=== PATIENT | female | born 1995 ===

== ENCOUNTER 2017-06-10 12:12 | Emergency (ER) | payer MEDICAID ==
[2017-06-10 12:17] VITALS: BMI 23.9
[2017-06-10 12:20] VITALS: RESP 18
[2017-06-10 13:28] LABS: HCG,QUALITATIVE URINE NEGATIVE (NEGATIVE)
[2017-06-10 13:36] LABS: SQUAMOUS EPITHIAL 4 /hpf (0-5); URINE BACTERIA OCC (<OCC); URINE BILIRUBIN NEGATIVE (NEGATIVE); URINE BLOOD 3+ (NEGATIVE); URINE CLARITY Turbid (Clear); URINE COLOR RED (YELLOW); URINE GLUCOSE (UA) NORMAL (Normal); URINE LEUKOCYTE ESTERASE NEG Leu/uL (Negative); URINE PROTEIN 2+ mg/dL (NEGATIVE); URINE UROBILINOGEN NORMAL mg/dL (0.2-1.0)
[2017-06-10 15:02] LABS: BASO % 0.5 % (0.0-2.0); EOS # 0.1 K/uL (0.0-0.7); EOS % 1.4 % (0.0-4.0); HEMOGLOBIN 12.4 g/dL (11.0-16.0); LYMPH # 1.7 K/uL (1.0-4.3); LYMPH % 27.5 % (20.0-40.0); MEAN CELL VOLUME 80.1 fL (81.0-99.0); MEAN CORPUSCULAR HEMOGLOBIN 26.3 pg (27.0-31.0); MEAN CORPUSCULAR HGB CONC 32.8 g/dL (33.0-37.0); MEAN PLATELET VOLUME 9.1 fL (7.2-11.7); MONO # 0.5 K/uL (0.0-0.8); MONO % 7.6 % (0.0-10.0); NEUT # 3.8 K/uL (1.8-7.0); RBC 4.74 Mil/uL (3.80-5.20); RED CELL DISTRIBUTION WIDTH 18.1 % (11.5-14.5); WHITE BLOOD COUNT 6.1 K/uL (4.8-10.8)
[2017-06-10 15:28] LABS: ALB/GLOB RATIO 1.3 (1.0-2.1); ALBUMIN 4.6 g/dL (3.5-5.0); ALT/SGPT 18 U/L (9-52); AST/SGOT 29 U/L (14-36); BLOOD UREA NITROGEN 8 mg/dL (7-17); CALCIUM 9.6 mg/dl (8.6-10.4); GFR AFRICAN-AMERICAN > 60; GFR NON-AFRICAN AMERICAN > 60
--- NOTE | 2017-06-10 15:44 | US ---
HISTORY: bleeding x 3 mo s/p D C COMPARISON: None available. TECHNIQUE: Transabdominal and transvaginal FINDINGS: UTERUS: Measures 9.7 x 3.5 x 6.1 cm. Normal in size and appearance. No fibroid or other mass lesion seen. ENDOMETRIUM: Measures 8 mm in diameter. Minimal complex fluid within the endometrial cavity, with intermediate level echoes. CERVIX: No cervical abnormality identified. RIGHT OVARY: Measures 3.3 x 1.7 x 2.2 cm. No solid mass. Normal flow. LEFT OVARY: Measures 2.6 x 2.0 x 3.2 cm. No solid mass. Normal flow. Left para ovarian simple cyst, 3.7 x 3.3 x 3.6 cm. FREE FLUID: Small amount of fluid in cul-de-sac. OTHER FINDINGS: None. IMPRESSION: Minimal mildly complex fluid within the endometrial cavity, possibly old blood. 3.7 cm simple left paraovarian cyst. Small amount of fluid in cul-de-sac.
--- NOTE | 2017-06-10 15:46 | C.PDOC ---
History Of Present Illness 21yo female presents to ED with complaints of vaginal bleeding for the past 4 months. Patient states 4 months ago (cannot recall specific date or month ), she had an elective at 24 weeks at [facility]. Since the procedure she has had bleeding everyday, varying in intensity. Patient states for the past 3 days, the bleeding has increased. Today she has used 3 pads. Patient was evaluated multiple times at [facility] and last week at [facility] with questionable retained products. She denies any fever, dizziness, chest pain, sob, abdominal pain, nausea, vomiting or vaginal discharge. Time Seen by Provider: 06/10/17 13:47 Chief Complaint (Nursing): Female Genitourinary History Per: Patient History/Exam Limitations: no limitations Onset/Duration Of Symptoms: Persistent Current Symptoms Are (Timing): Still Present Abnormal Vaginal Bleeding: Yes Past Medical History Reviewed: Historical Data, Nursing Documentation, Vital Signs Vital Signs: Last Vital Signs Temp 98.7 F 06/10/17 18:24 Pulse 77 06/10/17 18:24 Resp 18 06/10/17 18:24 BP 123/78 06/10/17 18:24 Pulse Ox 96 06/10/17 18:24 - Medical History PMH: No Chronic Diseases Surgical History: Tonsillectomy (2010) Family History: States: No Known Family Hx - Social History Hx Alcohol Use: Yes Hx Substance Use: No Review Of Systems Except As Marked, All Systems Reviewed And Found Negative. Constitutional: Negative for: Fever, Chills Gastrointestinal: Negative for: Nausea, Vomiting, Abdominal Pain, Diarrhea Genitourinary: Positive for: Vaginal Bleeding. Negative for: Pelvic Pain Physical Exam - Physical Exam Appears: Non-toxic, No Acute Distress Skin: Normal Color, Warm Head: Atraumatic, Normacephalic Eye(s): bilateral: Normal Inspection, PERRL, EOMI Nose: Normal Oral Mucosa: Moist Neck: Normal ROM, Supple Chest: Symmetrical Cardiovascular: Rhythm Regular Respiratory: Normal Breath Sounds Gastrointestinal/Abdominal: Normal Exam, Soft, No Tenderness Back: Normal Inspection Pelvic: Normal External Exam, No Cervix Open, Other (moderate amount of blood in vaginal canal) Extremity: Normal ROM Neurological/Psych: Oriented x3 ED Course And Treatment - Laboratory Results Result Diagrams: 06/10/17 14:55 06/10/17 14:55 O2 Sat by Pulse Oximetry: 100 (RA) Pulse Ox Interpretation: Normal Progress Note: Labs and US pelvis ordered. Pelvic exam done with female scribe Yaima Parra as soloist dancer. Per Dr. Madrigal, patient was offered a D&C procedure which she declined. Patient to be discharged home with prescription for Cytotec 400mcg Q8 for 2 days. Patient instructed to follow up with her OB/ E COMMERCE ARCHITECT without fail in 2-3 days. - Physician Consult Information Time Consulting Physician Contacted: 15:56 Physician Contacted: Madelyn Madrigal Outcome Of Conversation: Dr. Madrigal evaluated patient in ER and is suggesting outpatient followup with patient's EDITORIAL CLERK. Disposition - Disposition Disposition: HOME/ ROUTINE Disposition Time: 18:00 Condition: STABLE Additional Instructions: Follow up with your OBGYN in 2-3 days. Return to ER if symptoms persist or worsen. Prescriptions: Ibuprofen [Motrin] 600 mg PO Q6 PRN #20 tab PRN Reason: Pain, Mild (1-3) miSOPROStol [Cytotec] 400 mcg PO Q8 2 Days tab Instructions: Heavy Periods (DC) Forms: Work/School/Gym Excuse, [facility] ([place]an) - Clinical Impression Clinical Impression: Menorrhagia - PA / CHIEF CONTROLLER TOWER / Resident Statement MD/DO has reviewed & agrees with the documentation as recorded. - Scribe Statement The provider has reviewed the documentation as recorded by the Scribe (Yaima Parra) Provider Attestation: All medical record entries made by the Scribe were at my direction and personally dictated by me. I have reviewed the chart and agree that the record accurately reflects my personal performance of the history, physical exam, medical decision making, and the department course for this patient. I have also personally directed, reviewed, and agree with the discharge instructions and disposition.
[2017-06-10 18:25] VITALS: BP 123/78; PULSE 77; TEMP 98.7
--- NOTE | 2017-06-10 18:50 | CP.PCM.CON ---
History of Present Illness - History of Present Illness History of Present Illness: Asked to see patient by MIRNA Lorenzo: prolonged vaginal bleeding; h/o VTOP 4 months ago Patient seen at approximately 1530 hours; received on stretcher in Multi Purpose Room; her mother is present. Patient desired mother to stay 21 y.o. , LMP unsure, presents c/o vaginal bleeding, which has been present since elective in March, (patient does not recall the exact date. She is not even sure of the month). Vaginal bleeding has not stopped at all; occasionally has slowed down, but has also been heavier. Most recently, increased bleeding 2-3 days ago resulted in her leaving work early 06/09. "I put in a tampon, and within 22 minutes, it's soaked and the blood has been running down my legs". Denies headaches, dizziness, lightheadedness, chest pain, palpitations, shortness of breath; abdominal pain, foul odor or abnormal discharge per vagina HPI: elective termination at 24 weeks: 2 day procedure with Laminaria stents and D&E performed in [facility]. Patient doesn't recall when she had the follow-up clinic visit - stating she was told to come back 1 month after the procedure. Patient appears to have not kept the appointment and has not been seen in any other clinic. She has had 2 other E.D. visits: [facility] and just last week, [facility]. Patient states each time was told it looks like there might be tissue in her uterus. Patient states was not offered either D&C or uterotonic. Doesn't recall being sent home on antibiotics or uterotonic after the initial procedure in March. P OB: 03/2017, VTOP at 24 weeks, D&E without complications P [employer]: 13 x monthly x 5-6. (+) chlamydia, 2017. Denies other STIs PMH: sleep apnea - diagnosed 2016 PSH: Tonsilllectomy/Adenoidectomy, 2009 Meds: none Allergic to steroids - used once in her eye during an eye exam = swelling to the eye Soc Hx: (+) tobacco use 4 cig/day x 2 years. (+) marijuana - 1 blunt daily. Denies EtOH use. Works in [employer]. Lives with her mother. Fam Hx: Mother alive 47 y.o. no med issues. Father alive - 53 y.o. - med hx unk. Review of Systems - Review of Systems All systems: reviewed and no additional remarkable complaints except - Reproductive: Female Reproductive:Female: As Per HPI Past Patient History - Infectious Disease Hx of Infectious Diseases: None - Tetanus Immunizations Tetanus Immunization: Unknown - Past Medical History & Family History Past Family History: Reviewed and not pertinent - Past Social History Smoking Status: Light Smoker < 10 Cigarettes Daily Home Situation {Lives}: With Family - CARDIAC Hx Cardiac Disorders: No - PULMONARY Hx Respiratory Disorders: Yes Hx Sleep Apnea: Yes (2016) - NEUROLOGICAL Hx Neurological Disorder: No - HEENT Hx HEENT Problems: No - RENAL Hx Chronic Kidney Disease: No - ENDOCRINE/METABOLIC Hx Endocrine Disorders: No - HEMATOLOGICAL/ONCOLOGICAL Hx Blood Disorders: No - INTEGUMENTARY Hx Dermatological Problems: No - MUSCULOSKELETAL/RHEUMATOLOGICAL Hx Musculoskeletal Disorders: No - GASTROINTESTINAL Hx Gastrointestinal Disorders: No - GENITOURINARY/GYNECOLOGICAL Hx Sexually Transmitted Disorders: Yes (2016, chlamydia) : 1 Para: 0 Termination of : 1 - PSYCHIATRIC Hx Psychophysiologic Disorder: No Hx Substance Use: No - SURGICAL HISTORY Hx Dilation and Curettage: Yes (D&E, 03/2017) Hx Tonsillectomy: Yes - ANESTHESIA Hx Anesthesia: Yes Hx Anesthesia Reactions: No Meds Home Medications: Home Medication List Medication Instructions Recorded Confirmed Type Ibuprofen [Motrin] 600 mg PO Q6 PRN #20 tab 06/10/17 Rx miSOPROStol [Cytotec] 400 mcg PO Q8 2 Days tab 06/10/17 Rx Allergies/Adverse Reactions: Allergies Allergy/AdvReac Type Severity Reaction Status Date / Time banana Allergy Verified 06/10/17 12:16 cat dander Allergy Verified 06/10/17 12:16 STEROIDS Allergy Uncoded 06/10/17 12:16 Physical Exam - Constitutional Appears: Well, No Acute Distress - Head Exam Head Exam: NORMAL INSPECTION - Eye Exam Eye Exam: Normal appearance - ENT Exam ENT Exam: Mucous Membranes Moist - Neck Exam Neck exam: Positive for: Full Rom - Respiratory Exam Respiratory Exam: NORMAL BREATHING PATTERN - Cardiovascular Exam Cardiovascular Exam: REGULAR RHYTHM - GI/Abdominal Exam GI & Abdominal Exam: Soft - Exam External exam: NORMAL EXTERNAL EXAM Speculum exam: Vaginal Bleeding (small amount dark red blood egressing from cervical os) Bimanual exam: NORMAL BIMANUAL EXAM (Cervical os closed. Retroflexed uterus, 8 weeks; no adnexal masses or tenderness) - Extremities Exam Extremities exam: Positive for: full ROM, normal inspection - Back Exam Back exam: NORMAL INSPECTION - Neurological Exam Neurological exam: Alert, Normal Gait, Oriented x3 - Psychiatric Exam Psychiatric exam: Normal Affect, Normal Mood - Skin Skin Exam: Dry, Intact, Normal Color, Warm Results - Vital Signs Recent Vital Signs: Last Vital Signs Temp 98.7 F 06/10/17 18:24 Pulse 77 06/10/17 18:24 Resp 18 06/10/17 18:24 BP 123/78 06/10/17 18:24 Pulse Ox 96 06/10/17 18:24 - Labs Result Diagrams: 06/10/17 14:55 06/10/17 14:55 Labs: Laboratory Results - last 24 hr 06/10/17 06/10/17 06/10/17 13:01 14:55 14:55 WBC 6.1 RBC 4.74 Hgb 12.4 Hct 38.0 MCV 80.1 L MCH 26.3 L MCHC 32.8 L RDW 18.1 H Plt Count 266 MPV 9.1 Neut % (Auto) 63.0 Lymph % (Auto) 27.5 [place] % (Auto) 7.6 Eos % (Auto) 1.4 Baso % (Auto) 0.5 Neut # (Auto) 3.8 Lymph # (Auto) 1.7 [place] # (Auto) 0.5 Eos # (Auto) 0.1 Baso # (Auto) 0.0 Sodium 140 Potassium 4.5 Chloride 101 Carbon Dioxide 24 Anion Gap 20 BUN 8 Creatinine 0.5 L Est GFR ( Amer) > 60 Est GFR (Non-Af Amer) > 60 Random Glucose 83 Calcium 9.6 Total Bilirubin 0.6 AST 29 ALT 18 Alkaline Phosphatase 58 Total Protein 8.1 Albumin 4.6 Globulin 3.5 Albumin/Globulin Ratio 1.3 Beta HCG, Quant < 2.39 Urine Color Red Urine Clarity Turbid Urine pH 8.0 Ur Specific [place] 1.019 Urine Protein 2+ H Urine Glucose (UA) Normal Urine Ketones Negative Urine Blood 3+ H Urine Nitrate Negative Urine Bilirubin Negative Urine Urobilinogen Normal Ur Leukocyte Esterase Neg Urine WBC (Auto) 323 H Urine RBC (Auto) 6034 H Ur Squamous Epith Cells 4 Urine Bacteria Occ H Urine HCG, Qual Negative Blood Type Antibody Screen 06/10/17 14:55 WBC RBC Hgb Hct MCV MCH MCHC RDW Plt Count MPV Neut % (Auto) Lymph % (Auto) [place] % (Auto) Eos % (Auto) Baso % (Auto) Neut # (Auto) Lymph # (Auto) [place] # (Auto) Eos # (Auto) Baso # (Auto) Sodium Potassium Chloride Carbon Dioxide Anion Gap BUN Creatinine Est GFR ( Amer) Est GFR (Non-Af Amer) Random Glucose Calcium Total Bilirubin AST ALT Alkaline Phosphatase Total Protein Albumin Globulin Albumin/Globulin Ratio Beta HCG, Quant Urine Color Urine Clarity Urine pH Ur Specific [place] Urine Protein Urine Glucose (UA) Urine Ketones Urine Blood Urine Nitrate Urine Bilirubin Urine Urobilinogen Ur Leukocyte Esterase Urine WBC (Auto) Urine RBC (Auto) Ur Squamous Epith Cells Urine Bacteria Urine HCG, Qual Blood Type A POSITIVE Antibody Screen Negative Assessment & Plan - Assessment and Plan (Free Text) Assessment: Ultrasound report and images, and laboratory results were reviewed by me personally USG: uterus 9.7 x 3.5 x 6.1 cm. Endometrium: 8mm with minimal amount of middy complex fluid in endometrial canal. Right ovary 3.3 x 1.7 x 2.2 cm. Left ovary 2.6 x 2 x 3.2 cm. Left paraovarian cyst 3.7 x 3 x 3.3 cm. 21 y.o. P0010, prolonged vaginal bleeding after mid-second trimester TOP 2017. No signs of anemia. Normal WBC and platelets. Vital signs wnl. Denies any significant weight changes, especially weight gain (actually back to pre- weight). Admits to being "stressed out a lot"; declines elaborating. Lengthy D/W patient re next step in management. It was impressed upon her to establish a relationship with an outpatient entity. Has an appointment at [facility], for "end of this month", 06/30/17. It was discussed hormonal evaluation should be entertained. Also, evaluation re possible blood dyscrasias. Patient expressed an understanding; states she will comply. Patient and mother asked about the significance of the ultrasound findings in "her uterus". It was explained that bleeding of any aetiology will result in the sonographic findings as described. It was explained that in light of the time since the procedure, and the negative quantitative HCG, the ultrasound finding may not be "retained products". It was explained that without actual tissue it is not possible to confirm or refute this. To this end, patient was offered D&C. She was very taken aback, and declined. Patient was also given the option of taking a uterotonic, with the possibility that the material in the uterus can be expelled without surgery (which the patient is now adamantly refusing). Patient agrees to a course of uterotonic. Most common side effects were discussed: nausea, vomiting, abdominal pain, passage of "tissue" - which, if she inclined, she can retrieve and bring in to the clinic for submission to pathology. Patient is otherwise clinically stable. Plan: 1) Discharge home 2) Rx: cytotec 400 micrograms p.o. Q 8 hr x 2 days 3) Rx: Motrin 600 mg p.o. Q 6 hr, PRN, moderate to severe pain 4) Keep [employer] appointment 06/30/17 5) Return to E.D. for worsening symptoms 6) Letter for work: out of work today through . Can return to work, Friday06/13/17. Thank you for the pleasure of this consult - Date & Time Date: 06/10/17 Time: 18:35
[2017-06-11 18:27] VITALS: O2SAT 100
== END 2017-06-10 18:25 | disposition home or self-care (01) ==
LOC: C.ER 12:12
DX: N92.0 Excessive and frequent menstruation with regular cycle (principal)